=== PATIENT | female | born 1980 | race Caucasian/White ===

== ENCOUNTER → 2021-01-07 | Outpatient (CLI) | payer BC ==
[2014-08-15 10:23] VITALS: BP 113/71
[~2021-01-07] MED LIST: ACYC-12 PO; PREN1TAB99 PO
--- NOTE | 2021-01-07 15:56 | KCIC ---
Bilateral digital screening mammograms: Reason for examination: Routine baseline screening. Interpretation was made with the benefit of CAD. The skin and nipples show no abnormalities. No abnormal axillary lymph nodes are seen. The breast par enchyma shows scattered fibroglandular density. (Breast density: Category B.) There are no dominant m asses, suspicious calcifications or architectural distortions. Impression: No evidence of malignancy. Recommend routine screening. BI-RADS Category 1: Negative. "Our facility is accredited by the [employer] Mammography Program." This patient's information has been entered into a reminder system for the patient to be notified wit h the results of her examination and a target date for the next mammogram. Electronically signed by: Supriya aCry MD (01/07/2021 3:54 PM) [id number]
== END ==
LOC: KCIC MAMMO 14:10
PROVIDERS: ATTEND Optometrist
DX: Z12.31 Encounter for screening mammogram for malignant neoplasm of breast (principal)
CPT/HCPCS: 77067